=== PATIENT | male | born 1995 | race Two or more races ===

== ENCOUNTER 2019-06-20 21:10 | Emergency (ER) | payer SELFPAY ==
[~2019-06-20] VITALS: Ht 177.8 cm; Wt 82.0 kg
[2019-06-20 21:12] VITALS: BP 159/78
== END 2019-06-21 00:08 | disposition left against medical advice (07) ==
LOC: ER 21:10
DX: Z53.21 Procedure and treatment not carried out due to patient leaving prior to being seen by health care provider (principal)